=== PATIENT | male | born 1995 ===

== ENCOUNTER 2017-09-22 05:09 | Emergency (ER) | payer SELFPAY ==
[2017-09-22] MEDS ORDERED: Ondansetron 4 MG/2 ML SDV ONE (05:19)
[2017-09-22] MEDS ORDERED: Ondansetron 4 MG/2 ML SDV IVPUSH ONE (05:21)
[2017-09-22] MEDS ORDERED: Sodium Chloride 0.9% 1,000 ML IV ONE ×2 (05:21→10:00)
[2017-09-22] MEDS ORDERED: LORazepam 2 MG/ML SDV IVPUSH ONE (05:36)
[2017-09-22 05:42] LABS: CHLORIDE,CL 101 mmol/L (98-107); SODIUM,NA 140 mmol/L (136-145)
--- NOTE | 2017-09-22 05:50 | EDM.PDOC ---
ED HPI GENERAL MEDICAL PROBLEM - General Chief Complaint: General Stated Complaint: panic attacks and ETOH consuption Time Seen by Provider: 09/22/17 05:32 Source of Information: Reports: Patient, Other (friends) History Limitations: Reports: Intoxication - History of Present Illness INITIAL COMMENTS - FREE TEXT/NARRATIVE: Patient was brought to ER by friends after he became significantly intoxicated [place]. Per one friend, patient poured two regular sized Solo cups 3/4 full with an alcoholic drink and topped with with Mountain Dew. Per friends, patient does not usually drink ETOH. He had significant emesis in addition to the intoxication. Patient drank UV Blue. Pt has been throwing up for last 2.5 hrs and having panic attacks of hyperventilating episodes and yelling about a bib named 'grim' coming to get him. Also told friends he wanted to get a gun. No homicidal threats but friends thought that patient may have wanted to hurt self. Pt is agitated but cooperative with staff. Respirations increased and pt continued to dry heave after arriving in ER. Patient took one year off after high school but is scheduled to attend college this fall in . He denies chronic health issues but does smoke 3/4 to 1PPD. - Related Data Allergies Allergy/AdvReac Type Severity Reaction Status Date / Time bee venom protein (honey bee) Allergy Airway Verified 09/22/17 05:18 Tightness Home Meds: Home Meds . [No Known Home Meds] 09/22/17 [History] Past Medical History Respiratory History: Reports: Other (See Below) (smoker) Psychiatric History: Reports: Anxiety, Depression Social & Family History - Tobacco Use Smoking Status *Q: Current Every Day Smoker Tobacco Use Within Last Twelve Months: Cigarettes Packs/Tins Daily: 1 - Alcohol Use Alcohol Use History: Yes Alcohol Use Frequency: Rarely - Recreational Drug Use Recreational Drug Use: No ED ROS GENERAL - Review of Systems Review Of Systems: See Below Constitutional: Reports: Malaise, Decreased Appetite. Denies: Fever, Chills, Weakness, Night Sweats, Diaphoresis HEENT: Reports: No Symptoms Respiratory: Reports: No Symptoms Cardiovascular: Reports: No Symptoms GI/Abdominal: Reports: Nausea, Vomiting. Denies: Abdominal Pain, Constipation, Diarrhea, Hematemesis : Reports: No Symptoms Musculoskeletal: Reports: No Symptoms Skin: Reports: No Symptoms Neurological: Reports: Other (intoxication) Psychiatric: Reports: Suicidal Ideation (had said to friends at campground prior to coming her that he may be better if he shot himself). Denies: Homicidal Ideation Hematologic/Lymphatic: Reports: No Symptoms ED EXAM, GENERAL - Physical Exam Exam: See Below Exam Limited By: Intoxication General Appearance: Other (Patient laying in bed with eyes closed. Intermittent twitching/full body shudder noted. Opens eyes when you speak to him. Follows commands. Oriented x4) Eye Exam: Bilateral Eye: EOMI, PERRL Ears: Normal External Exam, Hearing Grossly Normal, Normal TMs, Other (moderate wax noted bilateral ear canals) Nose: No: Nasal Deformity, Nasal Swelling, Nasal Drainage Course - Vital Signs Last Recorded V/S: Last Vital Signs Temp 36.7 C 09/22/17 06:26 Pulse 95 09/22/17 10:45 Resp 23 H 09/22/17 10:45 BP 124/57 L 09/22/17 10:45 Pulse Ox 95 09/22/17 10:45 - Orders/Labs/Meds Orders: Active Orders 24 hr Category Date Time Status Cardiac Monitoring [RC] . DIRECTED Care 09/22/17 05:15 Active Oxygen Therapy [RC] PRN Care 09/22/17 05:15 Active DRUG SCREEN, URINE [URCHEM] Stat Lab 09/22/17 08:30 Ordered Labs: Laboratory Tests 09/22/17 09/22/17 09/22/17 Range/Units 05:20 05:20 08:30 WBC 11.5 H (4.0-10.2) K/uL RBC 6.23 H (4.33-5.41) M/uL Hgb 18.7 H* (13.1-16.8) g/dL Hct 51.6 H (39.0-49.0) % MCV 82.8 L (84.0-98.0) fL MCH 30.0 (28.2-33.3) pg MCHC 36.2 H (31.7-36.0) g/dL RDW 12.8 (11.2-14.1) % Plt Count 309 (150-350) K/uL Neut % (Auto) 68.6 (45.0-80.0) % Lymph % (Auto) 21.2 (10.0-50.0) % [place] % (Auto) 8.4 (2.0-14.0) % Eos % (Auto) 1.2 (0.0-5.0) % Baso % (Auto) 0.6 (0.0-2.0) % Neut # (Auto) 7.87 H (1.40-7.00) K/uL Lymph # (Auto) 2.43 (0.50-3.50) K/uL Montgomery # (Auto) 0.96 (0.00-1.00) K/uL Eos # (Auto) 0.14 (0.00-0.50) K/uL Baso # (Auto) 0.07 (0.00-0.20) K/uL Sodium 140 (136-145) mmol/L Potassium 3.5 (3.5-5.1) mmol/L Chloride 101 (98-107) mmol/L Carbon Dioxide 18.8 L (21.0-32.0) mmol/L BUN 10 (7-18) mg/dL Creatinine 1.05 (0.51-1.17) mg/dL Est Cr Clr Drug Dosing 113.16 mL/min Estimated GFR (MDRD) > 60 mL/min Glucose 107 H (74-106) mg/dL Calcium 9.4 (8.5-10.1) mg/dL Total Bilirubin 1.5 H (0.2-1.0) mg/dL AST 29 (15-37) U/L ALT 64 (12-78) U/L Alkaline Phosphatase 186 H (46-116) IU/L Total Protein 8.4 H (6.4-8.2) g/dL Albumin 4.5 (3.4-5.0) g/dL Urine Opiates Screen Negative (NEGATIVE) Urine Methadone Screen Negative (NEGATIVE) U Acetaminophen Screen Negative (NEGATIVE) Ur Barbiturates Screen Negative (NEGATIVE) Ur Tricyclics Screen Negative (NEGATIVE) Ur Phencyclidine Scrn Negative (NEGATIVE) Ur Amphetamine Screen Negative (NEGATIVE) U Methamphetamines Scrn Negative (NEGATIVE) U Benzodiazepines Scrn Negative (NEGATIVE) U Cocaine Metab Screen Negative (NEGATIVE) U Marijuana (THC) Screen Negative (NEGATIVE) Ethyl Alcohol 0.137 H (0.000-0.080) g/dL Meds: Medications Discontinued Medications Generic Name Dose Route Start Last Admin Trade Name Patricia PRN Reason Stop Dose Admin Flumazenil 0.2 mg 09/22/17 05:53 Romazicon IVPUSH 09/22/17 05:54 ONETIME ONE Sodium Chloride 1,000 mls @ 999 mls/hr 09/22/17 05:21 09/22/17 05:15 Normal Saline IV 09/22/17 06:21 999 mls/hr ONETIME ONE Administration Lactated Ringer's 1,000 mls @ 999 mls/hr 09/22/17 06:05 09/22/17 06:24 Ringers, Lactated IV 09/22/17 07:05 Not Given .BOLUS ONE Sodium Chloride 1,000 mls @ 500 mls/hr 09/22/17 07:30 09/22/17 07:29 Normal Saline IV 500 mls/hr ASDIRECTED LEXI Administration Sodium Chloride 1,000 mls @ 500 mls/hr 09/22/17 10:00 09/22/17 09:25 Normal Saline IV 09/22/17 11:59 500 mls/hr .BOLUS ONE Administration Lactated Ringer's 1,000 mls @ 999 mls/hr 09/22/17 06:30 09/22/17 06:20 Ringers, Lactated IV 09/22/17 07:30 999 mls/hr .BOLUS ONE Administration Lorazepam 1 mg 09/22/17 05:36 09/22/17 05:39 Ativan IVPUSH 09/22/17 05:37 1 mg ONETIME ONE Administration Ondansetron HCl 4 mg 09/22/17 05:21 09/22/17 05:17 Zofran IVPUSH 09/22/17 05:22 4 mg ONETIME ONE Administration Ondansetron HCl Confirm 09/22/17 05:19 09/22/17 05:27 Zofran Administered 09/22/17 05:20 Not Given Dose 4 mg .ROUTE .STK-MED ONE Pantoprazole Sodium 40 mg 09/22/17 10:53 09/22/17 11:38 Protonix Iv IVPUSH 09/22/17 10:54 40 mg ONETIME ONE Administration - Re-Assessments/Exams Free Text/Narrative Re-Assessment/Exam: 09/22/17 10:47 Patient observed in ER while receiving IV fluids. Given the concentrated HGB, he did receive multiple liters while blood alcohol level improved/effect of intoxication diminished. He feels much better now. Denies homicidal/suicidal ideation. Does not seem to recall asking his friends for a gun. No new complaints. Would like to go home. Drug screen negative. ETOH level 0.137 upon arrival to ER. Able to keep fluids/food down at time of discharge. Time spent counseling patient on tobacco addiction as well as ETOH use/binge drinking. To take it easy today. Followup as needed. No driving today. Departure - Departure Time of Disposition: 11:30 Disposition: Home, Self-Care 01 Condition: Good Clinical Impression: Dehydration Alcohol intoxication Qualifiers: Complication of substance-induced condition: uncomplicated Qualified Code(s): F10.920 - Alcohol use, unspecified with intoxication, uncomplicated - Discharge Information *PRESCRIPTION DRUG MONITORING PROGRAM REVIEWED*: Not Applicable *COPY OF PRESCRIPTION DRUG MONITORING REPORT IN PATIENT [place]YL[place]: Not Applicable Instructions: What You Need to Know About Alcohol Abuse and Dependence, Adult, Alcohol Intoxication, [id number] Referrals: PCP,Unknown [Primary Care Provider] - Forms: ED Department Discharge Additional Instructions: Rest today. No driving. Follow up as needed if you have problems - My Orders Last 24 Hours: My Active Orders 09/22/17 05:15 Cardiac Monitoring [RC] . DIRECTED Oxygen Therapy [RC] PRN 09/22/17 08:30 DRUG SCREEN, URINE [URCHEM] Stat - Assessment/Plan Last 24 Hours: My Active Orders 09/22/17 05:15 Cardiac Monitoring [RC] . DIRECTED Oxygen Therapy [RC] PRN 09/22/17 08:30 DRUG SCREEN, URINE [URCHEM] Stat
[2017-09-22] MEDS ORDERED: Flumazenil 0.1 MG/ML 5 ML MDV IVPUSH ONE (05:53)
[2017-09-22] MEDS ORDERED: Lactated Ringers 1,000 ML IV ONE ×2 (06:05→06:30)
[2017-09-22] MEDS ORDERED: Sodium Chloride 0.9% 1,000 ML IV SCH (07:30)
[2017-09-22] MEDS ORDERED: Pantoprazole 40 MG Vial IVPUSH ONE (10:53)
== END 2017-09-22 12:00 | disposition home or self-care (01) ==
LOC: LL.ED 05:09
DX: E86.0 Dehydration (principal); F10.129 Alcohol abuse with intoxication, unspecified; F17.210 Nicotine dependence, cigarettes, uncomplicated; F41.9 Anxiety disorder, unspecified; F32.9 Major depressive disorder, single episode, unspecified; Z91.030 Bee allergy status; Y90.6 Blood alcohol level of 120-199 mg/100 ml
CPT/HCPCS: 36415; 80053; 80305; 85025; 96361; 96374; 96375; 99284; C9113; G0480; J2060; J2405; J7030; J7120